=== PATIENT | female | born 1990 | race African-American/Black ===

== ENCOUNTER 2021-01-27 09:31 | Emergency (ER) | payer SELFPAY ==
[2021-01-27] MEDS ORDERED: MORPHINE 4 MG/ML SYR ONE ×2 (10:27→10:41)
[2021-01-27] MEDS ORDERED: LIDOCAINE 1% 20 ML MDV ONE (10:28)
[2021-01-27] MEDS ORDERED: ONDANSETRON 4 MG/2 ML VIAL ONE ×2 (10:28→10:42)
[2021-01-27] MEDS ORDERED: BUPIVACAINE 0.5% PF 10 ML VIAL ONE ×2 (10:28→10:42)
[2021-01-27] MEDS ORDERED: DIAZEPAM 10 MG/2 ML INJ SYRINGE ONE ×2 (10:28→10:42)
[2021-01-27] MEDS ORDERED: LIDOCAINE 1% MPF 30 ML VIAL ONE (10:42)
[2021-01-27] MEDS ORDERED: FENTANYL CITR 100 MCG/2 ML ONE ×2 (11:36→12:09)
[2021-01-27 11:55] LABS: Urine Blood Trace-intact (Negative); Urine Glucose Negative (Negative); Urine Protein Negative (Negative)
--- NOTE | 2021-01-27 11:56 | EDPHYS ---
Physician Documentation [facility] Name: Nikole Dixon Age: 30 yrs Sex: Female : 1990 Arrival Date: 01/27/2021 Time: 09:34 Bed 7 Private MD: ED Physician Dennis Munson HPI: 01/27 10:04 This 30 yrs old Black Female presents to ER via Ambulatory with complaints of Abscess. jmm 10:04 The patient presents with an abscess of the buttocks. Onset: The symptoms/episode jmm began/occurred gradually, 1 week(s) ago. Possible cause(s): unknown. Associated signs and symptoms: Pertinent positives: swelling, Pertinent negatives: fever. Modifying factors: the symptoms are alleviated by nothing, the symptoms are aggravated by nothing. This is a 30-year-old female no chronic medical conditions presents emerged department with complaints of swelling to her buttock. Patient states symptoms began approximately 1 week ago. Patient denies drainage. Patient denies fever. Patient has not had a similar episode in the past.. Historical: - Allergies: 09:52 No Known Allergies; hb - Home Meds: 09:52 None [Active]; hb - PMHx: 09:52 None; hb - PSHx: 09:52 None; hb - Immunization history:: Adult Immunizations up to date. - Social history:: Smoking status: Patient denies any tobacco usage or history of. ROS: 10:04 Constitutional: Negative for fever, chills, and weight loss, Cardiovascular: Negative jmm for chest pain, palpitations, and edema, Respiratory: Negative for shortness of breath, cough, wheezing, and pleuritic chest pain. 10:04 Skin: Positive for abscess. 10:04 All other systems are negative. Exam: 10:04 Constitutional: This is a well developed, well nourished patient who is awake, alert, jmm and in no acute distress. Head/Face: atraumatic. Eyes: EOMI, no conjunctival erythema appreciated ENT: Moist Mucus Membranes Neck: Trachea midline, Supple Chest/axilla: Normal chest wall appearance and motion. Cardiovascular: Regular rate and rhythm. No edema appreciated Respiratory: Normal respirations, no respiratory distress appreciated Abdomen/GI: Non distended, soft Back: Normal ROM 10:04 Skin: Moderate sized fluctuant abscess noted to the left superior gluteal cleft. Tender to palpation. No purulent drainage is appreciated. 10:04 Neuro: Orientation: is normal, Mentation: is normal, Memory: is normal. 10:04 Psych: Behavior/mood is pleasant, cooperative. Vital Signs: 09:51 BP 152 / 102; Pulse 88; Resp 16; Temp 98.9(TE); Pulse Ox 100% on R/A; Weight 90.72 kg; hb Height 5 ft. 3 in. (160.02 cm); Pain 04/18; 09:51 Body Mass Index 35.43 (90.72 kg, 160.02 cm) hb Procedures: 11:53 I \T\ D: Incision and drainage was performed for an abscess of the buttocks Prepped with [facility] Betadine, Anesthetized with 10 ml's 1% Lidocaine. Incised with #11 blade. Drained large amount purulent fluid. Packed with iodoform gauze, Dressing: sterile 4x4 gauze, the patient tolerated the procedure well. MDM: 09:58 Patient medically screened. [facility] 11:54 Data reviewed: vital signs, nurses notes. Counseling: I had a detailed discussion with yaneth the patient and/or guardian regarding: the historical points, exam findings, and any diagnostic results supporting the discharge/admit diagnosis, the need for outpatient follow up, to return to the emergency department if symptoms worsen or persist or if there are any questions or concerns that arise at home. ED course: Is alert nontoxic in appearance in the emergency department a large amount of purulent drainage was expressed on incision and drainage. Patient advised to follow-up with general surgery and otherwise given strict return precautions. Patient understands and agrees with plan of care.. 12:03 ED course: NARX score = 110. [facility] 01/27 11:55 Order name: Urine Dipstick-Ancillary; Complete Time: 11:57 [facility] 01/27 09:59 Order name: Saline Lock; Complete Time: 10:23 [facility] Administered Medications: 10:23 Drug: morphine 4 mg Route: IVP; Site: left forearm; hb 11:17 Follow up: Response: No adverse reaction hb 10:23 Drug: Zofran (Ondansetron) 4 mg Route: IVP; Site: left forearm; hb 11:17 Follow up: Response: No adverse reaction hb 10:23 Drug: Valium (diazepam) 2 mg Route: IVP; Site: left antecubital; hb 11:17 Follow up: Response: No adverse reaction hb 11:17 Drug: fentaNYL (PF) 50 mcg Route: IVP; Site: left antecubital; hb 11:29 Follow up: Response: No adverse reaction; Pain is decreased; RASS: Alert and Calm (0) tw2 11:29 Drug: Marcaine (bupivacaine) (0.5 %) 10 ml {Note: by Agustín GARCIA at this time.} Volume: tw2 10 ml; Route: Infiltration; 11:29 Drug: Lidocaine (1 %) 20 ml {Note: by JOSE Enamorado at this time.} Volume: 20 ml; tw2 Route: Infiltration; Disposition Summary: 01/27/21 11:56 Discharge Ordered Location: Home [facility] Condition: Stable jm Diagnosis - Cutaneous abscess of buttock [facility] Followup: [facility] - With: Rory Barrientos MD - When: 2 - 3 days - Reason: Recheck today's complaints, Continuance of care, Re-evaluation by your physician Discharge Instructions: - Discharge Summary Sheet [facility] - Skin Abscess [facility] - Incision and Drainage [facility] Forms: - Medication Reconciliation Form [facility] - Thank You Letter [facility] - Antibiotic Education [facility] - Prescription Opioid Use [facility] Prescriptions: - Ultram 50 mg Oral Tablet - take 1 tablet by ORAL route every 6 hours As needed; 12 tablet; Refills: 0, [facility] Product Selection Permitted - Bactrim DS 800-160 mg Oral Tablet - take 1 tablet by ORAL route every 12 hours for 10 days; 20 tablet; Refills: 0, [facility] Product Selection Permitted Signatures: Dispatcher [employer] Agustín Gabriel PA PA jmm Baxter, Heather, RN RN Yari Davalos RN RN tw2
--- NOTE | 2021-01-27 11:56 | ER ---
Nurse's Notes [facility] Name: Nikole Dixon Age: 30 yrs Sex: Female : 1990 Arrival Date: 01/27/2021 Time: 09:34 Bed 7 Private MD: Diagnosis: Cutaneous abscess of buttock Presentation: 01/27 09:51 Chief complaint: Abscess on left buttock x 1 week. Coronavirus screen: At this time, hb the client does not indicate any symptoms associated with coronavirus-19. Ebola Screen: No symptoms or risks identified at this time. Initial Sepsis Screen: Does the patient meet any 2 criteria? No. Patient's initial sepsis screen is negative. Does the patient have a suspected source of infection? No. Patient's initial sepsis screen is negative. Risk Assessment: Do you want to hurt yourself or someone else? Patient reports no desire to harm self or others. Onset of symptoms was January 21, 2021. 09:51 Method Of Arrival: Ambulatory 09:51 Acuity: KRISHAN 4 hb 09:56 Acuity: KRISHAN 3 Triage Assessment: 09:52 General: Appears in no apparent distress. uncomfortable, Behavior is calm, cooperative. hb Pain: Pain currently is 10 out of 10 on a pain scale. EENT: No signs and/or symptoms were reported regarding the EENT system. Neuro: Level of Consciousness is awake, alert, obeys commands, Oriented to person, place, time, situation. Cardiovascular: Patient's skin is warm and dry. Respiratory: Respiratory effort is even, unlabored, Respiratory pattern is regular, symmetrical. GI: No signs and/or symptoms were reported involving the gastrointestinal system. : No signs and/or symptoms were reported regarding the genitourinary system. Derm: Skin is pink, warm \T\ dry. Abscess located on gluteal cleft is golf ball sized. Musculoskeletal: No signs and/or symptoms reported regarding the musculoskeletal system. Historical: - Allergies: 09:52 No Known Allergies; hb - Home Meds: 09:52 None [Active]; hb - PMHx: 09:52 None; hb - PSHx: 09:52 None; hb - Immunization history:: Adult Immunizations up to date. - Social history:: Smoking status: Patient denies any tobacco usage or history of. Screenin:53 Abuse screen: Denies threats or abuse. Denies injuries from another. Nutritional hb screening: No deficits noted. Tuberculosis screening: No symptoms or risk factors identified. Fall Risk None identified. Assessment: 09:53 General: see triage. hb 10:34 Reassessment: Patient appears in no apparent distress at this time. Patient and/or hb family updated on plan of care and expected duration. Pain level reassessed. Patient is alert, oriented x 3, equal unlabored respirations, skin warm/dry/pink. 11:17 Reassessment: Patient appears in no apparent distress at this time. Patient and/or hb family updated on plan of care and expected duration. Pain level reassessed. Patient is alert, oriented x 3, equal unlabored respirations, skin warm/dry/pink. Vital Signs: 09:51 BP 152 / 102; Pulse 88; Resp 16; Temp 98.9(TE); Pulse Ox 100% on R/A; Weight 90.72 kg; hb Height 5 ft. 3 in. (160.02 cm); Pain 10/10; 09:51 Body Mass Index 35.43 (90.72 kg, 160.02 cm) hb ED Course: 09:34 Patient arrived in ED. mr 09:41 Agustín Jarvis PA is PHCP. [facility] 09:41 Dennis Munson MD is Attending Physician. [facility] 09:46 Juliet Guaman, RN is Primary Nurse. hb 09:46 Arm band placed on. hb 09:52 Triage completed. hb 09:53 Patient has correct armband on for positive identification. Bed in low position. Call hb light in reach. 10:16 Inserted saline lock: 20 gauge in left forearm, using aseptic technique. ,using aseptic hb technique. by Svitlana CARRERA. 11:55 Rory Barrientos MD is Referral Physician. [facility] Administered Medications: 10:23 Drug: morphine 4 mg Route: IVP; Site: left forearm; hb 11:17 Follow up: Response: No adverse reaction hb 10:23 Drug: Zofran (Ondansetron) 4 mg Route: IVP; Site: left forearm; hb 11:17 Follow up: Response: No adverse reaction hb 10:23 Drug: Valium (diazepam) 2 mg Route: IVP; Site: left antecubital; hb 11:17 Follow up: Response: No adverse reaction hb 11:17 Drug: fentaNYL (PF) 50 mcg Route: IVP; Site: left antecubital; hb 11:29 Follow up: Response: No adverse reaction; Pain is decreased; RASS: Alert and Calm (0) tw2 11:29 Drug: Marcaine (bupivacaine) (0.5 %) 10 ml {Note: by Agustín GARCIA at this time.} Volume: tw2 10 ml; Route: Infiltration; 11:29 Drug: Lidocaine (1 %) 20 ml {Note: by JOSE Enamorado at this time.} Volume: 20 ml; tw2 Route: Infiltration; Outcome: 11:56 Discharge ordered by MD. kim 12:21 Patient left the ED. hb Signatures: Agustín Jarvis PA PA jmm Hi Rocio Juliet Guaman, RN RN Yari Davalos RN RN tw2 Corrections: (The following items were deleted from the chart) 10:08 09:52 Derm: Skin is pink, warm \T\ dry. hb hb
[2021-01-27 12:31] VITALS: BP 152/102; TEMP 98.9; O2SAT 100
== END 2021-01-27 12:21 | disposition home or self-care (01) ==
LOC: ER 09:31
PROC: 0J990ZZ Drainage of Buttock Subcutaneous Tissue and Fascia, Open Approach (ICD-10-PCS; principal; 2021-01-27)
DX: L02.31 Cutaneous abscess of buttock (principal)
CPT/HCPCS: 81003; 96374; 96375; 99283; J2405; J3010; J3360